=== PATIENT | female | born 1995 | race Caucasian/White ===

== ENCOUNTER 2016-08-15 19:16 | Emergency (ER) | payer MEDICAID, OTHER ==
[~2016-08-15] VITALS: Ht 162.6 cm; Wt 133.0 kg
[~2016-08-15 19:16] MED LIST: DICY10CA60 PO
[2016-08-15 19:30] VITALS: Ht 162.6 cm; Wt 133.0 kg
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
[2016-08-15] MEDS ORDERED: IBUP-1542 PO (21:51)
[2016-08-15 22:09] VITALS: BP 119/62; PULSE 98; RESP 18; TEMP 98.2
== END 2016-08-15 22:09 | disposition home or self-care (01) ==
LOC: FTE 19:16
DX: S39.92XA Unspecified injury of lower back, initial encounter (principal); V89.2XXA Person injured in unspecified motor-vehicle accident, traffic, initial encounter
CPT/HCPCS: 72040; 72072; 73610; Z7502

== ENCOUNTER → 2018-01-02 | Emergency (ER) | END | disposition home or self-care (01) ==

== ENCOUNTER 2018-02-27 21:14 | Emergency (ER) | END 2018-02-27 23:24 | disposition home or self-care (01) ==

== ENCOUNTER → 2018-03-31 | Outpatient (CLI) | END | disposition home or self-care (01) ==